=== PATIENT | male | born 1990 | race Caucasian/White ===

== ENCOUNTER 2018-04-07 08:49 | Emergency (ER) | payer SELFPAY ==
[~2018-04-07] VITALS: Ht 180.3 cm; Wt 70.3 kg
--- NOTE | 2018-04-07 09:05 | NUR ---
PT IS IN ROOM #2B. DR CRUZ EVALUATED THE PT.
--- NOTE | 2018-04-07 09:22 | NUR ---
PT WAS D/C TO HOME. D/C INSTRUCTIONS GIVEN TO THE PT. NO BLEEDING.
[2018-04-07 09:29] VITALS: BP 129/77
== END 2018-04-07 09:30 | disposition home or self-care (01) ==
LOC: ER 08:49
DX: S01.81XA Laceration without foreign body of other part of head, initial encounter (principal); W51.XXXA Accidental striking against or bumped into by another person, initial encounter; Y93.89 Activity, other specified; Y92.89 Other specified places as the place of occurrence of the external cause; Y99.8 Other external cause status
CPT/HCPCS: A4663